=== PATIENT | male | born 1950 | race Caucasian/White ===

== ENCOUNTER 2023-02-12 10:16 | Emergency (ER) | payer MEDICARE, SELFPAY ==
[2023-02-12] VITALS (15 sets, daily range): BP systolic 166–234; BP diastolic 98–189; PULSE 63–89; RESP 12–30; TEMP 36.5; O2SAT 95–98
--- NOTE | ~2023-02-12 | CT_ITS ---
EXAMINATION: CT brain wo con INDICATION: Blurred vision, right eye pain COMPARISON: None TECHNIQUE: Standard unenhanced head CT. The dose-length product (DLP) was 605.33 mGy-cm. The mA was a djusted according to patient size. Iterative reconstruction technique was employed. FINDINGS: There is no acute intraparenchymal hemorrhage. No evidence of mass lesion. There is a small area of encephalomalacia medially in the right occipital lobe.. There is mild periventricular and villa bcortical hypodensity probably related to small vessel ischemic disease. There is mild prominence of the sulci and ventricles related to cerebral atrophy. Intracranial calcified cerebral atherosclerosis is noted. There are no extra-axial collections. There is no mass effect or midline shift. The orbits and soft tissues are unremarkable. The visualized sinuses and mastoid air cells are well aerated. IMPRESSION: 1. 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 2. Age related findings. Reviewed, dictated and finalized at location B.
--- NOTE | ~2023-02-12 | XR_ITS ---
EXAMINATION: XR chest 1V portable INDICATION: Shortness of breath, severe hypertension TECHNIQUE: Portable AP chest at 1042 hours COMPARISON: None available FINDINGS: The lungs are free of acute opacities. No pleural effusion or pneumothorax. The cardiomedia stinal silhouette is normal. IMPRESSION: 1. No acute cardiopulmonary abnormality. Reviewed, dictated and finalized at location B.
--- NOTE | 2023-02-12 10:37 | ED.GENADULT ---
HPI - General Adult General Chief complaint: Recheck/Abnormal Lab/Rx <Gómez Turcios PA-C - Last Filed: 02/12/23 18:56> Stated complaint: elevated BP <REBECCA Moctezuma Last Filed: 02/12/23 18:56> Time Seen by Provider: 02/12/23 10:24 <REBECCA Moctezuma Last Filed: 02/12/23 18:56> Source: patient <REBECCA Moctezuma Last Filed: 02/12/23 18:56> Mode of arrival: ambulatory <REBECCA Moctezuma Last Filed: 02/12/23 18:56> Limitations: no limitations <REBECCA Moctezuma Last Filed: 02/12/23 18:56> History of Present Illness HPI narrative: This is a 72-year-old male who presents to the ED with chief complaint of right eye irritation for the last 2 weeks. Patient states that he went to urgent care this morning and they referred him over to the ER for his severe high blood pressure along with the right eye complaints. 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 However now he states he has been having some increased pain that is intermittently sharp in the right eye. Denies any injury or foreign body sensation. Reports gradual decrease of visual acuity in the left eye as well but no pain.. Denies any LOC, falls, injuries to the eye, <Gómez Turcios PA-C - Last Filed: 02/12/23 18:56> Related Data Allergies/adverse reactions: Allergies Allergy/AdvReac Type Severity Reaction Status Date / Time No Known Allergies Allergy Verified 02/12/23 10:26 <REBECCA Moctezuma Last Filed: 02/12/23 18:56> Exam Narrative: GENERAL: Well-appearing, well-nourished, and in no acute distress. HEAD: Normocephalic, atraumatic. EYES: Right eye with diffuse scleral injection. Cornea is hazy. Pupil is fixed and dilated. Pressure measured at 70 mmHg consistently. No foreign bodies or ulceration noted on the fluorescein exam. Left eye benign. Normal EOMs. Normal pressure. ENT: Nares clear, no rhinorrhea or epistaxis. Mucous membranes moist. Oropharynx without tonsillar hypertrophy exudate or other lesions. NECK: Supple. No adenopathy or masses. CHEST: No respiratory distress. Clear to auscultation. No wheezes rales or rhonchi HEART: Regular rate and rhythm. No murmur heard. Normal peripheral pulses. ABDOMEN: Soft, nontender, nondistended, normal active bowel sounds. MSK: Normal range of motion. No edema. SKIN: Warm, dry, no rash. NEURO: Alert and oriented x3. No focal deficits. PSYCH: Normal mood and affect. <Gómez Turcios PA-C - Last Filed: 02/12/23 18:56> Course ICE SKATER/PA Physician Supervision This visit was performed by both a physician and an APC. I performed all aspects of the MDM as documented. <Kali Moreno MD - Last Filed: 02/12/23 19:02> Vital Signs Vital signs: Vital Signs Temperature 97.7 F 02/12/23 10:18 Pulse Rate 70 02/12/23 10:18 Respiratory Rate 20 02/12/23 10:18 Blood Pressure 234/106 H 02/12/23 10:18 Pulse Oximetry 97 02/12/23 10:18 Oxygen Delivery Room Air 02/12/23 10:18 Temperature 97.7 F 02/12/23 10:18 Pulse Rate 63 02/12/23 12:55 Respiratory Rate 17 02/12/23 12:55 Blood Pressure 220/119 H 02/12/23 12:55 Pulse Oximetry 98 02/12/23 12:55 Oxygen Delivery Room Air 02/12/23 10:18 <Gómez Turcios PA-C - Last Filed: 02/12/23 18:56> Vital Signs Temperature 97.7 F 02/12/23 10:18 Pulse Rate 70 02/12/23 10:18 Respiratory Rate 20 02/12/23 10:18 Blood Pressure 234/106 H 02/12/23 10:18 Pulse Oximetry 97 02/12/23 10:18 Oxygen Delivery Room Air 02/12/23 10:18 Temperature 97.7 F 02/12/23 10:18 Pulse Rate 63 02/12/23 12:55 Respiratory Rate 17 02/12/23 12:55 Blood Pressure 220/119 H 02/12/23 12:55 Pulse Oximetry 98 02/12/23 12:55 Oxygen Delivery Room Air 02/12/23 10:18 <Kali Moreno MD - Last Filed: 02/12/23 19:02> Medical Decision Making MDM Narrative Medical jaspreeti
[2023-02-12 10:52] LABS: Basophils Percent Auto 0.5 % (0.2-1.2); Eosinophils Percent Auto 0.1 % (0-4.4); Hematocrit 47.9 % (42.0-52.0); Hemoglobin 16.3 g/dL (14.0-18.0); Immature Granulocyte Absolute 0.05 K/mm3 (0.00-0.031); Immature Granulocyte Percent A 0.6 % (0-0.5); Lymphocytes Absolute Auto 1.84 K/mm3 (0.9-3.2); Lymphocytes Percent Auto 22.1 % (18.3-44.2); Mean Corpuscular Hemoglobin 31.2 pg (26-34); Mean Corpuscular Volume 91.8 fl (80-100); Mean Platelet Volume 11.8 fl (7.4-10.4); Monocytes Absolute Auto 0.4 K/mm3 (0.1-0.6); Monocytes Percent Auto 5.2 % (2.6-8.5); Neutrophils Absolute Auto 5.9 K/mm3 (1.3-6.7); Neutrophils Percent Auto 71.5 % (45.5-73.1); Platelet Count Result 228 k/mm3 (150-375); Red Blood Count 5.22 M/mm3 (4.6-6.20); Red Cell Distribution Width 12.7 % (11.5-14.5); White Blood Count 8.3 K/mm3 (4.5-10.0)
--- NOTE | 2023-02-12 11:16 | PC.NURSE ---
Patient report received from KYRA Mckeon. All questions answered and call of patient assumed.
[2023-02-12 11:18] LABS: Alanine Aminotransferase 13 U/L (6-50); Albumin Level 4.6 g/dL (3.5-5.1); Alkaline Phosphatase 87 U/L (38-126); Anion Gap 6 mmol/L (8-16); Aspartate Amino Transferase 21 U/L (17-59); Bilirubin,Total 0.9 mg/dL (0.2-1.3); Blood Urea Nitrogen 25 mg/dL (9-20); Calcium 9.6 mg/dL (8.4-10.2); Carbon Dioxide 35 mmol/L (22-30); Chloride 98 mmol/L (98-107); Estimated CRCL calculation 44 ml/min; Estimated Glomerular Filt Rate > 60; Glucose 104 mg/dL (65-110); Potassium 3.9 mmol/L (3.4-5.0); Sodium 139 mmol/L (137-145)
[2023-02-12] MEDS: hydrALAZINE HCL 20 MG/ML VIAL 10 MG IV PUSH (11:19)
[2023-02-12] MEDS: DORZOLAMIDE HCL 2% OPHTH DROPS 1 DROP RIGHT EYE (12:54)
[2023-02-12] MEDS: TIMOLOL MALEATE 0.25% OP SOLN 5 ML BOTTLE 1 DROP RIGHT EYE (12:54)
[2023-02-12] MEDS: BRIMONIDINE TARTRATE 0.15% 5 ML OPHTH SOLN 1 DROP RIGHT EYE (12:54)
== END 2023-02-12 12:59 | disposition home or self-care (01) ==
PROVIDERS: Emergency Provider Physician Assistant
DX: H40.051 Ocular hypertension, right eye (principal); I10 Essential (primary) hypertension
CPT/HCPCS: 36415; 70450; 71045; 80053; 85025; 96374; 99284; A9270; J0360